=== PATIENT | male | born 1965 | race Caucasian/White ===

== ENCOUNTER → 2017-03-30 | Outpatient (CLI) | payer BC ==
[~2017-03-30] MED LIST: CELEXA10 MG PO; CIPRO 500MG TA500 MG PO; PRIL40 PO
[2017-03-30 18:10] LABS: BASO % 0.6 % (0.0-2.0); EOS # 0.2 (0.0-0.7); EOS % 2.5 % (0-4.0); GRAN # 4.2 (1.4-6.5); GRAN % 65.1 % (42.2-75.2); HEMATOCRIT 47.9 % (42.0-52.0); HEMOGLOBIN 15.8 g/dl (13.5-18.0); LYMPH # 1.3 (1.2-3.4); LYMPH % 20.7 % (20.0-51.0); MEAN CELL VOLUME 97 fl (80.0-100.0); MEAN CORPUSCULAR HEMOGLOBIN 32 pg (27.0-31.0); MEAN CORPUSCULAR HGB CONC 33 g/dl (33.0-37.0); MEAN PLATELET VOLUME 11.6 fl (7.4-10.4); MONO # 0.7 (0.1-0.6); MONO % 10.5 % (1.7-9.3); PLATELET COUNT 183 K/mm3 (130-400); RED BLOOD COUNT 4.92 M/mm3 (4.20-5.60); WHITE BLOOD COUNT 6.4 K/mm3 (4.8-10.8)
[2017-03-30 18:16] LABS: ADJUSTED CALCIUM 8.8 mg/dL (8.4-10.2); ALBUMIN 4.9 gm/dL (3.5-5.0); BILIRUBIN,TOTAL 0.8 mg/dL (0.0-1.0); CALCIUM 9.5 mg/dL (8.4-10.2); CREATININE, serum 1.01 mg/dL (0.66-1.25); POTASSIUM 4.4 mmol/L (3.4-5.0); TOTAL PROTEIN 8.4 gm/dL (6.4-8.2)
== END ==
LOC: COL.LAB 16:36
PROVIDERS: Family Medicine
DX: D69.6 Thrombocytopenia, unspecified (principal); R74.0 Nonspecific elevation of levels of transaminase and lactic acid dehydrogenase [LDH]; R74.8 Abnormal levels of other serum enzymes

== ENCOUNTER 2018-11-20 23:24 | Inpatient (IN) | payer SELFPAY ==
[~2018-11-20] VITALS: Ht 175.3 cm; Wt 98.7 kg
[2018-11-20] MEDS ORDERED: ROBITUSSIN DM 105 ML PO (23:41)
[2018-11-20] MEDS ORDERED: CLARITIN 1010 MG/TAB PO (23:42)
[2018-11-20 23:54] LABS: BASO # 0.1 (0.0-0.2); BASO % 1.2 % (0.0-2.0); EOS # 0.7 (0.0-0.7); EOS % 8.4 % (0-4.0); GRAN # 5.3 (1.4-6.5); GRAN % 62.8 % (42.2-75.2); HEMATOCRIT 51.8 % (42.0-52.0); HEMOGLOBIN 17.3 g/dl (13.5-18.0); LYMPH # 1.4 (1.2-3.4); MEAN CELL VOLUME 94 fl (80.0-100.0); MEAN CORPUSCULAR HEMOGLOBIN 31 pg (27.0-31.0); MEAN CORPUSCULAR HGB CONC 33 g/dl (33.0-37.0); MEAN PLATELET VOLUME 10.9 fl (7.4-10.4); MONO # 0.9 (0.1-0.6); MONO % 10.2 % (1.7-9.3); PLATELET COUNT 192 K/mm3 (130-400); RED BLOOD COUNT 5.53 M/mm3 (4.20-5.60); REDCELL DISTRIBUTION WIDTH-CV 14.3 % (11.5-14.5)
[2018-11-21] LABS: INR 0.9 (0.8-3.0); PROTHROMBIN TIME 10.9 SECONDS (9.7-12.8)
[2018-11-21 00:03] LABS: PARTIAL THROMBOPLASTIN TIME 32.5 SECONDS (26.0-37.0)
[2018-11-21 00:09] LABS: ALANINE AMINOTRANSFERASE 21 U/L (21-72); ALBUMIN 4.5 gm/dL (3.5-5.0); ALKALINE PHOSPHATASE 71 U/L (50-136); ANION GAP 14 mmol/L (7-16); AST,SGOT 37 U/L (15-37); BLOOD UREA NITROGEN 11 mg/dL (9-20); C-REACTIVE PROTEIN 1.4 mg/dL (0.0-0.9); CALCIUM 9.5 mg/dL (8.4-10.2); CARBON DIOXIDE 28 mmol/L (22-30); CHLORIDE 96 mmol/L (98-107); CREATININE, serum 0.95 (0.66-1.25); GLUCOSE 90 mg/dL (74-106); POTASSIUM 3.8 mmol/L (3.4-5.0); SODIUM 138 mmol/L (137-145); TOTAL PROTEIN 8.4 gm/dL (6.4-8.2)
[2018-11-21 00:26] LABS: TROPONIN-I < 0.012 ng/mL (0.000-0.035)
--- NOTE | 2018-11-21 02:45 | NUR ---
Pt arrived to room 315, transfered per wheelchair by executive housekeeper. Pt awake, a&o, cooperative c cares. Pt continued c/o SOB but reports "I feel way better than I did". Noted increased WOB, RR 28, RT aware of pt admit. Pt also c/o lateral rib/chest pain R>L, rated "8/10" et states "it's from coughing so hard". Pt denies other c/o. IV patent; IVF's et abx infusing. O2 per NC. Pt oriented to room, unit policies et current POC. Questions invited et answered, pt verbalizes understanding. Denies further needs. Will continue c admit process.
[2018-11-21 02:49] VITALS: BP 91/33; PULSE 114; TEMP 98.2
[2018-11-21 06:36] LABS: HEMATOCRIT 48.2 % (42.0-52.0); HEMOGLOBIN 15.5 g/dl (13.5-18.0); MEAN CELL VOLUME 95 fl (80.0-100.0); MEAN CORPUSCULAR HEMOGLOBIN 31 pg (27.0-31.0); MEAN CORPUSCULAR HGB CONC 32 g/dl (33.0-37.0); MEAN PLATELET VOLUME 11.1 fl (7.4-10.4); PLATELET COUNT 162 K/mm3 (130-400); RED BLOOD COUNT 5.09 M/mm3 (4.20-5.60); REDCELL DISTRIBUTION WIDTH-CV 14.5 % (11.5-14.5)
[2018-11-21 06:40] LABS: ANION GAP 19 mmol/L (7-16); BLOOD UREA NITROGEN 9 mg/dL (9-20); CALCIUM 8.7 mg/dL (8.4-10.2); CARBON DIOXIDE 20 mmol/L (22-30); CHLORIDE 99 mmol/L (98-107); CREATININE, serum 0.95 (0.66-1.25); GLUCOSE 157 mg/dL (74-106); SODIUM 139 mmol/L (137-145)
[2018-11-21 06:52] LABS: TROPONIN-I 6 HR POST INITIAL < 0.012 ng/mL (0.000-0.034)
[2018-11-21 07:47] LABS: BAND 1 % (0-10); LYMPHOCYTE 5 % (20.0-51.0); NEUTROPHILS 92 % (42.0-75.2); PLATELET ESTIMATE NORMAL (NORMAL)
--- NOTE | 2018-11-21 08:30 | NUR ---
Assessment complete. Pt sitting up in bed, A&O x 4. Notable dyspnea at rest with O2 at 3 L/min via NC. IVF's infusing per orders through right forearm site without s/s of complications. Fluids disconnected at this time for pt to transfer to radiology for testing. Pt reports pain to left side 6 out of 10 that worsens with coughing. PRN pain medication administered per orders. Pt to at this time.
[2018-11-21 08:45] VITALS: BP 153/92; PULSE 116; TEMP 98.2
[2018-11-21 10:03] LABS: ARTERIAL BLD GAS O2 SATURATION 96.3 % (92-100); ARTERIAL BLD GAS TCO2 CT 20.2; ARTERIAL BLOOD GAS BASE EXCESS -4.3 (-2-2); ARTERIAL BLOOD GAS HCO3 19.3 meq/L (22-26); ARTERIAL BLOOD GAS PCO2 31.8 mmHg (35-45); ARTERIAL BLOOD GAS PO2 86.8 mmHg (80-100)
[2018-11-21 10:34] VITALS: BP 141/73
--- NOTE | 2018-11-21 12:52 | NUR ---
RACQUEL met with the pt and his ex- Delia to discuss a discharge plan. The pt is being tranfered to [facility] today, 11/21. The pt lives in [place] with Delia and their children. The pt does not use DME and reports independence with ADLs. The pt does not have a PCP and receives medications from [facility]. The pt is not currently insured. SW to contact Sophia in finance to discuss pt options. The pt does not have advanced directives in the EMR but was interested in completing a DPOA-HC form. RACQUEL and pt's nurse witnessed the DPOA-HC form completion; it designates Delia. The original was given to the pt and a copy was placed in the pt's chart. There are no additional needs at this time.
--- NOTE | 2018-11-21 12:55 | NUR ---
Pt discharged for transfer to [facility] via EMS. IVF's still infusing with Potassium running concurrently, third bag of Potassium provided to EMS for transport. PRN pain medication administered just before transfer per pt's request, reporting mid back pain 6 out of 10.
--- NOTE | 2018-11-21 13:17 | NUR ---
Report called to ASHISH Hay at [facility].
== END 2018-11-21 13:00 | disposition short-term general hospital (02) | DRG 199 ==
LOC: COL.ER 23:24 → MEDICAL 11-21 01:36
PROVIDERS: Emergency Medicine; Internal Medicine Critical Care Medicine; Nurse Practitioner; ADMIT Student in an Organized Health Care Education/Training Program
DX: J98.2 Interstitial emphysema (principal); J18.9 Pneumonia, unspecified organism; E87.2 Acidosis; K27.9 Peptic ulcer, site unspecified, unspecified as acute or chronic, without hemorrhage or perforation; F41.9 Anxiety disorder, unspecified; F10.20 Alcohol dependence, uncomplicated; F17.210 Nicotine dependence, cigarettes, uncomplicated; R00.0 Tachycardia, unspecified; E87.6 Hypokalemia; I10 Essential (primary) hypertension; R06.03 Acute respiratory distress; R09.02 Hypoxemia
CPT/HCPCS: 99223-AI; A4216; J0456; J0696; J2930; J3480; J7030; J7050; J7512; Q9967

== ENCOUNTER 2018-12-26 18:00 | Emergency (ER) | payer SELFPAY ==
[~2018-12-26] VITALS: Ht 175.3 cm; Wt 99.1 kg
[~2018-12-26 18:00] MED LIST changes: +CLARITIN 1010 MG/TAB PO; +ROBITUSSIN DM 105 ML PO
[2018-12-26 19:30] LABS: BASO # 0.1 (0.0-0.2); BASO % 0.8 % (0.0-2.0); EOS # 0.5 (0.0-0.7); GRAN # 4.5 (1.4-6.5); GRAN % 62.2 % (42.2-75.2); HEMATOCRIT 47.6 % (42.0-52.0); LYMPH # 1.5 (1.2-3.4); LYMPH % 20.4 % (20.0-51.0); MEAN CELL VOLUME 93 fl (80.0-100.0); MEAN CORPUSCULAR HEMOGLOBIN 31 pg (27.0-31.0); MEAN CORPUSCULAR HGB CONC 34 g/dl (33.0-37.0); MEAN PLATELET VOLUME 10.5 fl (7.4-10.4); MONO # 0.7 (0.1-0.6); PLATELET COUNT 230 K/mm3 (130-400); RED BLOOD COUNT 5.13 M/mm3 (4.20-5.60); REDCELL DISTRIBUTION WIDTH-CV 13.3 % (11.5-14.5)
[2018-12-26 19:45] LABS: ALANINE AMINOTRANSFERASE 13 U/L (21-72); ALBUMIN 4.3 gm/dL (3.5-5.0); ALKALINE PHOSPHATASE 71 U/L (50-136); ANION GAP 9 mmol/L (7-16); AST,SGOT 26 U/L (15-37); BILIRUBIN,TOTAL 0.9 mg/dL (0.0-1.0); BLOOD UREA NITROGEN 13 mg/dL (9-20); CALCIUM 10.4 mg/dL (8.4-10.2); CARBON DIOXIDE 28 mmol/L (22-30); CHLORIDE 103 mmol/L (98-107); CREATININE, serum 0.94 (0.66-1.25); GLUCOSE 88 mg/dL (74-106); LIPASE 210 U/L (23-300); POTASSIUM 3.3 mmol/L (3.4-5.0); SODIUM 141 mmol/L (137-145); TOTAL PROTEIN 7.5 gm/dL (6.4-8.2)
[2018-12-26 19:46] LABS: C-REACTIVE PROTEIN < 0.5 mg/dL (0.0-0.9)
[2018-12-26 20:31] LABS: COLLECTION METHOD CLEAN CATCH
[2018-12-26 20:41] LABS: MUCOUS Present /lpf; PH 7 (5-8); SQUAMOUS EPITHELIAL None Seen /hpf; URINE APPEARANCE Cloudy; URINE BACTERIA Rare /hpf; URINE BILIRUBIN Negative (NEGATIVE); URINE BLOOD Negative (NEGATIVE); URINE COLOR Yellow; URINE GLUCOSE Negative (NEGATIVE); URINE KETONE 1+ (NEGATIVE); URINE LEUKOCYTE ESTERASE Negative (NEGATIVE); URINE NITRATE Negative (NEGATIVE); URINE PROTEIN(semi-quant) Negative (NEGATIVE); URINE RBC None Seen /hpf; URINE UROBILINOGEN Negative (NEGATIVE)
[2018-12-26] MEDS ORDERED: BACTRIM DS 8001 TAB PO (20:58)
[2018-12-26 21:13] VITALS: BP 155/80; PULSE 86; TEMP 98.2
== END 2018-12-26 21:18 | disposition home or self-care (01) ==
LOC: COL.ER 18:00
PROVIDERS: Family Medicine
DX: N30.90 Cystitis, unspecified without hematuria (principal)
CPT/HCPCS: A4216; J0696; J1885; J2270; J2405; J7030; Q9967

== ENCOUNTER 2020-08-22 05:53 | Inpatient (IN) | payer BC ==
[~2020-08-22] VITALS: Ht 175.3 cm; Wt 93.7 kg
[2020-08-22] VITALS (545 sets, daily range): BP systolic 120–146; BP diastolic 68–82; PULSE 86–92; TEMP 98–98.1; O2SAT 87–100
[~2020-08-22 05:53] MED LIST changes: +BACTRIM DS 8001 TAB PO
[2020-08-22 06:05] LABS: COLLECTION METHOD CLEAN CATCH
[2020-08-22 06:08] LABS: BASO # 0.1 (0.0-0.2); BASO % 1.1 % (0.0-2.0); EOS # 0.1 (0.0-0.7); EOS % 0.9 % (0-4.0); GRAN # 3.7 (1.4-6.5); GRAN % 67.8 % (42.2-75.2); HEMATOCRIT 41.5 % (42.0-52.0); HEMOGLOBIN 14.2 g/dl (13.5-18.0); LYMPH # 0.8 (1.2-3.4); LYMPH % 14.7 % (20.0-51.0); MEAN CELL VOLUME 100 fl (80.0-100.0); MEAN CORPUSCULAR HEMOGLOBIN 34 pg (27.0-31.0); MEAN CORPUSCULAR HGB CONC 34 g/dl (33.0-37.0); MEAN PLATELET VOLUME 10.5 fl (7.4-10.4); MONO # 0.8 (0.1-0.6); PLATELET COUNT 174 K/mm3 (130-400); RED BLOOD COUNT 4.17 M/mm3 (4.20-5.60); REDCELL DISTRIBUTION WIDTH-CV 13.4 % (11.5-14.5)
[2020-08-22 06:13] LABS: MUCOUS Present /lpf; PH 5 (5-8); SQUAMOUS EPITHELIAL None Seen /hpf; URINE APPEARANCE Hazy; URINE BACTERIA None Seen /hpf; URINE BILIRUBIN Negative (NEGATIVE); URINE BLOOD Negative (NEGATIVE); URINE COLOR Amber; URINE GLUCOSE Negative (NEGATIVE); URINE KETONE 1+ (NEGATIVE); URINE LEUKOCYTE ESTERASE Negative (NEGATIVE); URINE NITRATE Negative (NEGATIVE); URINE PROTEIN(semi-quant) 2+ (NEGATIVE)
[2020-08-22 06:18] LABS: ACETAMINOPHEN 17 ug/mL (10-30); ALANINE AMINOTRANSFERASE 55 U/L (4-49); ALBUMIN 4.8 gm/dL (3.5-5.0); ALCOHOL(ethanol),MEDICAL 248 mg/dL; ALKALINE PHOSPHATASE 67 U/L (50-136); ANION GAP 19 mmol/L (7-16); AST,SGOT 103 U/L (15-37); BILIRUBIN,TOTAL 1.9 mg/dL (0.0-1.0); BLOOD UREA NITROGEN 34 mg/dL (9-20); CALCIUM 9.2 mg/dL (8.4-10.2); CARBON DIOXIDE 21 mmol/L (22-30); CHLORIDE 94 mmol/L (98-107); CREATININE, serum 1.32 (0.66-1.25); GLUCOSE 83 mg/dL (74-106); POTASSIUM 3.7 mmol/L (3.4-5.0); SODIUM 134 mmol/L (137-145); TOTAL PROTEIN 8.6 gm/dL (6.4-8.2)
[2020-08-22 06:21] LABS: SALICYLATE < 1.0 mg/dL
[2020-08-22 06:25] LABS: TRICYCLIC ANTIDEPRESS URINE NEGATIVE
--- NOTE | 2020-08-22 12:26 | NUR ---
PATIENT HAS ARRIVED TO ICU. HE IS VERY SLEEPY AND FALLS ASLEEP WITH NO STIMULATION. ED RN ISAMAR REPORTS THAT SHE JUST GAVE HIM 2 MG IV ATIVAN FOR INCREASED TREMORS AND DIAPHORESIS. VS [facility]. DR. MCINTOSH NOTIFIED OF PATIENT'S ARRIVAL.
--- NOTE | 2020-08-22 17:30 | NUR ---
Patient more awake and alert now. He is requesting food and water. Call placed to Dr. Guallpa for diet order. Patient using call light and urinal appropriately. He is encouraged to call for help if he needs it. Bed Alarm activated for his safety, since he has been so drowsy and tremulous.
--- NOTE | 2020-08-22 20:00 | NUR ---
Assessment complete. Pt is AXO X3, denies having any pain at this time. Pt is sitting up in the bed watching TV at this time and he denies further needs. Call light within reach.
[2020-08-23] VITALS (1381 sets, daily range): BP systolic 117–155; BP diastolic 87–121; PULSE 65–88; TEMP 97.7–98.1; O2SAT 85–100
[2020-08-23 05:23] LABS: BASO % 0.7 % (0.0-2.0); EOS # 0.1 (0.0-0.7); EOS % 3.3 % (0-4.0); GRAN % 66.9 % (42.2-75.2); HEMATOCRIT 37.1 % (42.0-52.0); HEMOGLOBIN 12.3 g/dl (13.5-18.0); LYMPH # 0.4 (1.2-3.4); LYMPH % 14.4 % (20.0-51.0); MEAN CELL VOLUME 103 fl (80.0-100.0); MEAN CORPUSCULAR HEMOGLOBIN 34 pg (27.0-31.0); MEAN CORPUSCULAR HGB CONC 33 g/dl (33.0-37.0); MONO # 0.4 (0.1-0.6); MONO % 14.4 % (1.7-9.3); PLATELET COUNT 114 K/mm3 (130-400); REDCELL DISTRIBUTION WIDTH-CV 13.5 % (11.5-14.5)
[2020-08-23 05:34] LABS: CALCIUM 8.5 mg/dL (8.4-10.2); CREATININE, serum 0.66 (0.66-1.25); POTASSIUM 3.5 mmol/L (3.4-5.0)
--- NOTE | 2020-08-23 07:04 | NUR ---
Bedside shift report given to ASHISH Melgar.
--- NOTE | 2020-08-23 12:45 | NUR ---
SW met with patient to complete intake. Patient provides that he lives in [place], [place] alone. Patient provides that his point of contact is his ex Geovanni [phone]. Patient provides that she also has been appointed as his DPOA and has the documentation. Patient provides that he will contact her in order to bring a copy of the documenation to the facility. Patient states that he does not utilize any DME and is independent with ADL's, PCP is Dr. Pinto and and pharmacy is [facility]. Patient provides that his plan is to go back to his home when
--- NOTE | 2020-08-23 21:00 | NUR ---
Assessment complete. Pt is AXO X3, states he has pain in his LLQ rated a 4/10. Pt is sitting up in the bed watching TV at this time and he denies further needs. Call light within reach.
[2020-08-24] VITALS (377 sets, daily range): BP systolic 116–153; BP diastolic 80–114; PULSE 54–96; TEMP 97.6–98.5; O2SAT 75–100
[2020-08-24 05:11] LABS: BASO % 0.9 % (0.0-2.0); EOS # 0.2 (0.0-0.7); EOS % 5.1 % (0-4.0); GRAN # 2.1 (1.4-6.5); GRAN % 58.7 % (42.2-75.2); HEMATOCRIT 38.9 % (42.0-52.0); HEMOGLOBIN 12.7 g/dl (13.5-18.0); LYMPH # 0.9 (1.2-3.4); LYMPH % 25.3 % (20.0-51.0); MEAN CELL VOLUME 105 fl (80.0-100.0); MEAN CORPUSCULAR HEMOGLOBIN 34 pg (27.0-31.0); MEAN CORPUSCULAR HGB CONC 33 g/dl (33.0-37.0); MEAN PLATELET VOLUME 10.4 fl (7.4-10.4); MONO # 0.3 (0.1-0.6); MONO % 9.7 % (1.7-9.3); PLATELET COUNT 118 K/mm3 (130-400); RED BLOOD COUNT 3.72 M/mm3 (4.20-5.60); REDCELL DISTRIBUTION WIDTH-CV 13.3 % (11.5-14.5)
[2020-08-24 05:23] LABS: CALCIUM 8.8 mg/dL (8.4-10.2); CREATININE, serum 0.6 (0.66-1.25); POTASSIUM 3.6 mmol/L (3.4-5.0)
--- NOTE | 2020-08-24 07:14 | NUR ---
Bedside shift report given to ASHISH Melgar.
--- NOTE | 2020-08-24 12:37 | NUR ---
First visit from the marketing operations assistant. Voltage Regulator Assembler prayed with patient, no other needs right now.
--- NOTE | 2020-08-24 12:55 | NUR ---
Pt anxious, wishing to leave AMA because "Im paranoid. Im terrified of hospitals. I know if I just had a beer I would be better. Can you please unhook me so I can leave". Plan of care discussed in length with pt, recall limited d/t anxiety but pt agreeable to staying and getting treatment. MD Ramu notified
--- NOTE | 2020-08-24 13:09 | NUR ---
Adjunct Phlebotomy Instructor was contacted by patient's RN as patient is wanting to leave [facility]. RACQUEL entered patient's room as Ramón HINOJOSA was on the phone with patient's former boss, Ajay. Per Ajay Melgar advised he would lock up patient's apartment for him. Patient states he needed to get up with someone at [facility] for outpatient treatment services. SW inquired what patient meant by outpatient services and he advised he meant both mental health as well as drug and alcohol services as patient reports he drinks from the time he wakes up until he passes out. Patient stresses he needs outpatient services because he needs to maintain his apartment and job. When SW asked patient where he works, patient states he was recently let go from his job. Patient advised he feels that someone is out to get him, meaning people outside of the hospital are trying to set him up for something. Patient states he currently is on his ex-'s [employer] policy, however likely will be kicked off that. Patient states more than once that he is broke and has no insurance. RACQUEL spoke with patient about [facility] outpatient services. At this time, it appears patient will be agreeable to staying as he agreed to let Ramón HINOJOSA administer medication. RACQUEL provided [facility] Resource Guide to patient which included drug and alcohol resources. RACQUEL then contacted [facility] and left a message for their admissions department. RACQUEL will continue to follow.
--- NOTE | 2020-08-24 14:40 | NUR ---
MD Ramu on unit - pt attempting to get out of bed to leave AMA. Pt reoriented but pt wishing to "leave here so I can get treatment at [facility] or something like that". MD Ramu and myself educated pt that he will be unable to be evaluated in this condition - [place] requires clients to be medically cleared before being evaluated. Pt is not understanding and attempting to get out of bed again - PRN Haldol given.
--- NOTE | 2020-08-24 19:30 | NUR ---
Received report from ASHISH Melgar. All medications verified and all questions answered. Patient resting in bed watching TV at this time. No concerns or complaints noted. VSS. Will resume care at this time.
[2020-08-25] VITALS (590 sets, daily range): BP systolic 97–145; BP diastolic 71–95; PULSE 56–65; TEMP 97.9–98.2; O2SAT 85–100
[2020-08-25 05:19] LABS: BASO % 0.8 % (0.0-2.0); EOS # 0.3 (0.0-0.7); EOS % 6.3 % (0-4.0); GRAN # 2.6 (1.4-6.5); GRAN % 64.3 % (42.2-75.2); HEMATOCRIT 41.5 % (42.0-52.0); HEMOGLOBIN 13.8 g/dl (13.5-18.0); LYMPH # 0.8 (1.2-3.4); LYMPH % 19.5 % (20.0-51.0); MEAN CELL VOLUME 104 fl (80.0-100.0); MEAN CORPUSCULAR HEMOGLOBIN 35 pg (27.0-31.0); MEAN CORPUSCULAR HGB CONC 33 g/dl (33.0-37.0); MEAN PLATELET VOLUME 11.1 fl (7.4-10.4); MONO # 0.4 (0.1-0.6); MONO % 8.8 % (1.7-9.3); PLATELET COUNT 142 K/mm3 (130-400)
[2020-08-25 05:32] LABS: CALCIUM 9.4 mg/dL (8.4-10.2); CREATININE, serum 0.63 (0.66-1.25); POTASSIUM 3.8 mmol/L (3.4-5.0)
--- NOTE | 2020-08-25 07:00 | NUR ---
PT RESTING IN BED. VSS. PRECEDEX RUNNING. BEDALARM ACTIVE. WILL CONITUE TO [facility].
--- NOTE | 2020-08-25 10:13 | NUR ---
DISCUSSED WITH , , AND TIMUR GIBBONS REGARDING UNDERLYINS PSYCH CONDITION AND POSSIBLE WORSENING OF SYMPOTOMS WHILE DETOXING. NO NEW ORDERS RECEIVED.
--- NOTE | 2020-08-25 11:47 | NUR ---
Pt awake, sitting up, and eating breakfast. Pt wants to know why he cant go home. I explained to Pt he is till receiving IVF, electrolyte replace, and medications to help with detox. Pt wants to speak to the provider. Marcelle GIBBONS called and notified. States she or will come speak to Pt.
--- NOTE | 2020-08-25 12:51 | NUR ---
[facility] PICC RN unable to get ahold of Pt's for consent. This RN attempted later to call for consent with no answer. Called Marcelle GIBBONS for possible medical necessity consent, but does not belive justified at this time. Will attempt again later to get ahole of Pt's for consent.
--- NOTE | 2020-08-25 13:50 | NUR ---
Attempted to place second IV. Pt became very agitated and refusing an IV. Pt states "I came here to detox and not get poked and proded. I want to leave". Educated Pt on safely detoxing and why the need for second Iv. Pt still insisting to leave. Marcelle Olivarez called and notfied. came and visited with Pt at length. Pt has agreed to stay. states ok to hold banana bag at this time, since Pt took PO meds this am.
--- NOTE | 2020-08-25 14:01 | NUR ---
Order for PICC placement. left a voice mail message on 's phone this am with no response. Patient is unable to give consent. Primary care nurse contacted physician and unable to sign for medical necessity at this time.
--- NOTE | 2020-08-25 20:00 | NUR ---
Assessment complete and charted. Patient drowsy but easily wake with voice. Denies needs. Denies pain. Call light in reach.
--- NOTE | 2020-08-25 23:45 | NUR ---
Resting in bed. Denies needs. Call light in reach.
[2020-08-26] VITALS (652 sets, daily range): BP systolic 86–122; BP diastolic 69–85; PULSE 63–134; TEMP 97.6–98.2; O2SAT 86–100
--- NOTE | 2020-08-26 03:58 | NUR ---
Patient resting in bed. Denies needs. Call light in reach.
--- NOTE | 2020-08-26 05:56 | NUR ---
Patient remains on precedex gtt throughout night. Otherwise uneventful night. Resting in bed this AM with lab in room for blood draw. Call light in reach.
[2020-08-26 06:11] LABS: BASO # 0.1 (0.0-0.2); BASO % 0.8 % (0.0-2.0); EOS # 0.4 (0.0-0.7); EOS % 6.3 % (0-4.0); GRAN # 4.2 (1.4-6.5); GRAN % 66.2 % (42.2-75.2); HEMATOCRIT 43.6 % (42.0-52.0); HEMOGLOBIN 14.4 g/dl (13.5-18.0); LYMPH # 1.1 (1.2-3.4); MEAN CELL VOLUME 104 fl (80.0-100.0); MEAN CORPUSCULAR HEMOGLOBIN 34 pg (27.0-31.0); MEAN CORPUSCULAR HGB CONC 33 g/dl (33.0-37.0); MEAN PLATELET VOLUME 10.9 fl (7.4-10.4); MONO # 0.6 (0.1-0.6); MONO % 9.2 % (1.7-9.3); PLATELET COUNT 144 K/mm3 (130-400); REDCELL DISTRIBUTION WIDTH-CV 13.1 % (11.5-14.5)
[2020-08-26 06:26] LABS: ALBUMIN 3.9 gm/dL (3.5-5.0); BILIRUBIN,TOTAL 0.5 mg/dL (0.0-1.0); CALCIUM 9.6 mg/dL (8.4-10.2); CREATININE, serum 0.67 (0.66-1.25); MAGNESIUM 2.3 mg/dL (1.6-2.3); POTASSIUM 4.1 mmol/L (3.4-5.0); TOTAL PROTEIN 7.1 gm/dL (6.4-8.2)
--- NOTE | 2020-08-26 07:16 | NUR ---
Report given to ASHISH Guerra
[2020-08-26 15:12] LABS: BASO # 0.1 (0.0-0.2); BASO % 0.9 % (0.0-2.0); EOS # 0.4 (0.0-0.7); GRAN % 62.4 % (42.2-75.2); HEMATOCRIT 45.9 % (42.0-52.0); HEMOGLOBIN 15.1 g/dl (13.5-18.0); LYMPH # 1.7 (1.2-3.4); LYMPH % 21.5 % (20.0-51.0); MEAN CELL VOLUME 104 fl (80.0-100.0); MEAN CORPUSCULAR HEMOGLOBIN 34 pg (27.0-31.0); MEAN CORPUSCULAR HGB CONC 33 g/dl (33.0-37.0); MONO # 0.8 (0.1-0.6); MONO % 9.8 % (1.7-9.3); PLATELET COUNT 176 K/mm3 (130-400); RED BLOOD COUNT 4.42 M/mm3 (4.20-5.60)
[2020-08-26 15:19] LABS: ALANINE AMINOTRANSFERASE 86 U/L (4-49); ALBUMIN 4.1 gm/dL (3.5-5.0); ALKALINE PHOSPHATASE 55 U/L (50-136); ANION GAP 7 mmol/L (7-16); AST,SGOT 89 U/L (15-37); BILIRUBIN,TOTAL 0.4 mg/dL (0.0-1.0); BLOOD UREA NITROGEN 17 mg/dL (9-20); CALCIUM 10.4 mg/dL (8.4-10.2); CARBON DIOXIDE 31 mmol/L (22-30); CHLORIDE 98 mmol/L (98-107); CREATININE, serum 0.81 (0.66-1.25); GLUCOSE 91 mg/dL (74-106); MAGNESIUM 2.1 mg/dL (1.6-2.3); POTASSIUM 5.2 mmol/L (3.4-5.0); SODIUM 135 mmol/L (137-145); TOTAL PROTEIN 7.5 gm/dL (6.4-8.2)
--- NOTE | 2020-08-26 15:23 | NUR ---
SEE MERGE FOR ALL MEDICATION ADMINISTRATION TIMES, INTRA AND POST SEDATION ASSESSMENTS
[2020-08-26 15:31] LABS: TROPONIN-I < 0.012 ng/mL (0.000-0.035)
--- NOTE | 2020-08-26 19:40 | NUR ---
PATIENT HAD ORD[facility] AFTER BEING OFF PRECEDEX FOR AN HOUR WITH A CIWA SCORE OF 0 ALL MORNING. PRIOR TO TRANSFER AROUND 1440 PATIENT DEVELOPED SOB AND CHEST PAIN RATED AT [address] KAPLAN WAS CALLED AND QUICKLY CAME TO BEDSIDE. EKG WAS OBTAINED CARDIOLOGY CONSULTED. PT TAKEN TO TELEPHONE STATION REPAIRER. NO INTERVENTIONS COMPLETED. POST PROCEDURE PT TAKEN TO CT WHERE SADDLE PE WAS FOUND. LOVENOX STARTED PER DR. QUINTANILLA. PT NOTIFIED OF CHANGE IN CARE. PT HAS RESTED WELL IN BED SINCE, ATE ALL OF DINNER. NIGHT HOSPITALIST CALLED FOR HR SUSTAINED POST CATH PROCEDURE IN 130S. SEE ORDERS FOR TREATMENT PLAN. REPORT GIVEN TO VIKTORIYA JOSEPH RELINQUISED AT THIS TIME.
--- NOTE | 2020-08-26 20:00 | NUR ---
Assessment complete and charted. Patient given bed bath after flat time was ended at 2029. Patient tolerated well with some shortness of breath while changing sheets. Patient denies other needs at this time. Fluid bolus currently infusing for hypotension and tachycardia. Call light in reach.
--- NOTE | 2020-08-26 21:50 | NUR ---
Patient reporting headache. Patient has PRN tramadol. Verifed with Martha CANDELARIO. Okay to give to patient. Denies other needs at this time. Call light in reach.
[2020-08-27] VITALS (702 sets, daily range): BP systolic 87–110; BP diastolic 66–86; PULSE 86–114; TEMP 98–98.2; O2SAT 82–100
--- NOTE | 2020-08-27 05:01 | NUR ---
Resting in bed. Right femoral site CDI. Denies needs. Call light in reach.
[2020-08-27 05:51] LABS: BASO # 0.1 (0.0-0.2); BASO % 0.8 % (0.0-2.0); EOS # 0.3 (0.0-0.7); EOS % 4.5 % (0-4.0); GRAN # 4.1 (1.4-6.5); GRAN % 61.5 % (42.2-75.2); HEMATOCRIT 42.5 % (42.0-52.0); HEMOGLOBIN 13.8 g/dl (13.5-18.0); LYMPH # 1.5 (1.2-3.4); LYMPH % 22.6 % (20.0-51.0); MEAN CELL VOLUME 104 fl (80.0-100.0); MEAN CORPUSCULAR HEMOGLOBIN 34 pg (27.0-31.0); MEAN CORPUSCULAR HGB CONC 33 g/dl (33.0-37.0); MONO # 0.7 (0.1-0.6); MONO % 10.1 % (1.7-9.3); PLATELET COUNT 155 K/mm3 (130-400); RED BLOOD COUNT 4.08 M/mm3 (4.20-5.60); REDCELL DISTRIBUTION WIDTH-CV 13.4 % (11.5-14.5)
[2020-08-27 06:04] LABS: ALBUMIN 3.6 gm/dL (3.5-5.0); BILIRUBIN,TOTAL 0.4 mg/dL (0.0-1.0); CREATININE, serum 0.73 (0.66-1.25); MAGNESIUM 2.1 mg/dL (1.6-2.3); PHOSPHOROUS 4.3 mg/dL (2.5-4.5); POTASSIUM 3.8 mmol/L (3.4-5.0); TOTAL PROTEIN 6.7 gm/dL (6.4-8.2)
--- NOTE | 2020-08-27 06:58 | NUR ---
Patient resting in bed. Denies needs. Call light in reach. Uneventful night.
--- NOTE | 2020-08-27 07:18 | NUR ---
Report given to ASHISH Nova
--- NOTE | 2020-08-27 16:04 | NUR ---
Process Steward followed up with patient as he requested to speak with RACQUEL. Patient is interested in applying for social security disability. Patient is also still agreeable to get set up with outpatient drug and alcohol services through [facility]. RACQUEL consulted with Sophia Financial Counselor who advised patient will need to call the Social Security office at ph#[phone] or apply online. RACQUEL also contacted Yennifer at [facility] admissions and gave referral. Yennifer advised she would contact patient to work on establishing services.
--- NOTE | 2020-08-27 19:02 | NUR ---
Report given to ASHISH Oconnor. Care relinquished at this time.
--- NOTE | 2020-08-27 19:47 | NUR ---
Assessment complete and charted. Denies needs at this time. Call light in reach.
[2020-08-28] VITALS (211 sets, daily range): BP systolic 99–130; BP diastolic 47–76; PULSE 54–88; TEMP 97.6–98.6; O2SAT 86–100
--- NOTE | 2020-08-28 | NUR ---
Assessment complete and charted. Denies needs. Call light in reach.
--- NOTE | 2020-08-28 05:33 | NUR ---
Assessment complete and charted. Denies needs. Call light in reach.
--- NOTE | 2020-08-28 05:42 | NUR ---
Patient had uneventful night. Resting in bed this AM. Call light in reach.
[2020-08-28 06:17] LABS: BASO # 0.1 (0.0-0.2); BASO % 0.9 % (0.0-2.0); EOS # 0.3 (0.0-0.7); EOS % 5.6 % (0-4.0); GRAN % 55.6 % (42.2-75.2); HEMATOCRIT 38.7 % (42.0-52.0); HEMOGLOBIN 12.7 g/dl (13.5-18.0); LYMPH # 1.3 (1.2-3.4); LYMPH % 24.3 % (20.0-51.0); MEAN CELL VOLUME 106 fl (80.0-100.0); MEAN CORPUSCULAR HEMOGLOBIN 35 pg (27.0-31.0); MEAN CORPUSCULAR HGB CONC 33 g/dl (33.0-37.0); MEAN PLATELET VOLUME 11.1 fl (7.4-10.4); MONO # 0.7 (0.1-0.6); PLATELET COUNT 152 K/mm3 (130-400); RED BLOOD COUNT 3.66 M/mm3 (4.20-5.60); REDCELL DISTRIBUTION WIDTH-CV 13.3 % (11.5-14.5)
[2020-08-28 06:26] LABS: ALBUMIN 3.2 gm/dL (3.5-5.0); BILIRUBIN,TOTAL 0.3 mg/dL (0.0-1.0); CALCIUM 8.2 mg/dL (8.4-10.2); CREATININE, serum 0.65 (0.66-1.25); MAGNESIUM 2.3 mg/dL (1.6-2.3); PHOSPHOROUS 3.4 mg/dL (2.5-4.5); POTASSIUM 4.1 mmol/L (3.4-5.0); TOTAL PROTEIN 6.1 gm/dL (6.4-8.2)
--- NOTE | 2020-08-28 07:11 | NUR ---
Report given to ASHISH Billingsley
--- NOTE | 2020-08-28 08:00 | NUR ---
Report recieved from overnight RN, all questions answered. Patient found awake alert and oriented in bed, pleasant. Denies chest pain or SOB. Oxygen via NC in place SpO2 WNL. Bandages to right groin and right radial CDI. Indwelling beltran in place draining clear yellow urine. MD at bedside, requests patient beltran to be pulled, and to get up to recliner. Beltran pulled, tolerated without difficulty. Patient transfered to recliner no difficulties. Blood pressure remains on the lower end at this time. Fluids infusing at 125ml/hr via right forearm. Call foley within reach, will monitor.
--- NOTE | 2020-08-28 10:35 | NUR ---
Correction Warden spoke with Hospitalist who advised patient may transfer to a different hospital, but if he doesn't, he will move upstairs to the medical floor.
--- NOTE | 2020-08-28 11:15 | NUR ---
Report called to RN on medical floor. Patient to be transfered via wheel chair to room 307. All questions answered. Vital signs 109/82 p-76 96% on 2L via NC, Respirations 18. Will transport.
--- NOTE | 2020-08-28 11:25 | NUR ---
Patient transported to room 307 via wheel chair. RN at bedside to get patient settled. Medical floor to continue care at this time.
[2020-08-28] MEDS ORDERED: TYLENOL 500MG500 MG PO (12:04)
[2020-08-28] MEDS ORDERED: ALEVE 220MG220 MG PO (12:05)
[2020-08-28] MEDS ORDERED: IBU400 MG PO (12:06)
[2020-08-28] MEDS ORDERED: PRIL40 PO (12:06)
[2020-08-28] MEDS ORDERED: CLARITIN 1010 MG/TAB PO (12:07)
[2020-08-28] MEDS ORDERED: ONE-A-DAY ESSE1 EACH PO (12:08)
[2020-08-28] MEDS ORDERED: S IH (12:10)
--- NOTE | 2020-08-28 12:13 | NUR ---
Pt arrived to medical unit room 307 at 1130 from ICU via WC. Oriented to room. Med rec updated. A&Ox4. Heart RRR. Lungs CTA. Denies pain or other concerns at this time. IV to right forearm w/bloody drainage, site redressed and flushes well. IVF started per orders. Call light in reach.
--- NOTE | 2020-08-28 21:24 | NUR ---
Patient sitting up in the chair upon enter the room. Shift assessment completed. Patient A/O x4. Patient denies SOB or dyspnea while at rest. Patient currently on oxygen 2L via NC. Breathing even and unlabored. Patient reports some mild pain 2-3 out of 10 to his right femoral cardiac cath site. Dressing C/D/I to right femoral cardiac cath site. All scheduled meds given per JUN. NS running at 75ml/hr via right AC. Right AC IV site has no s/s of complications. Call light within reach. Patient denies any needs at this time.
[2020-08-29] VITALS (8 sets, daily range): BP systolic 105–114; BP diastolic 62–77; PULSE 66–83; TEMP 97.8–98.8
--- NOTE | 2020-08-29 05:50 | NUR ---
Alcohol detox score remains 0 over the night. Patient remains on O2 2L via NC. VS stable. No acute distress noted. Right AC IV removed due to c/o pain/discomfort to IV site. Inserted 22G IV to left forearm. Patient tolerated well. Call light within reach.
[2020-08-29 07:50] LABS: BASO # 0.1 (0.0-0.2); BASO % 1.3 % (0.0-2.0); EOS # 0.2 (0.0-0.7); EOS % 4.4 % (0-4.0); GRAN # 3.1 (1.4-6.5); GRAN % 56.6 % (42.2-75.2); HEMATOCRIT 37.9 % (42.0-52.0); HEMOGLOBIN 12.3 g/dl (13.5-18.0); LYMPH # 1.1 (1.2-3.4); LYMPH % 20.7 % (20.0-51.0); MEAN CELL VOLUME 107 fl (80.0-100.0); MEAN CORPUSCULAR HEMOGLOBIN 35 pg (27.0-31.0); MEAN CORPUSCULAR HGB CONC 33 g/dl (33.0-37.0); MEAN PLATELET VOLUME 11.1 fl (7.4-10.4); MONO # 0.9 (0.1-0.6); MONO % 16.1 % (1.7-9.3); PLATELET COUNT 174 K/mm3 (130-400); RED BLOOD COUNT 3.56 M/mm3 (4.20-5.60); REDCELL DISTRIBUTION WIDTH-CV 13.1 % (11.5-14.5)
[2020-08-29 08:01] LABS: ALBUMIN 3.4 gm/dL (3.5-5.0); BILIRUBIN,TOTAL 0.2 mg/dL (0.0-1.0); CALCIUM 8.6 mg/dL (8.4-10.2); CREATININE, serum 0.69 (0.66-1.25); MAGNESIUM 2.2 mg/dL (1.6-2.3); PHOSPHOROUS 3.8 mg/dL (2.5-4.5); TOTAL PROTEIN 6.4 gm/dL (6.4-8.2)
--- NOTE | 2020-08-29 09:17 | NUR ---
Shift assessment complete. Pt sitting on edge of bed. Unhooked fluids and wrapped IV for shower. Reports mild SOA, sats 98-100% on 1 lpm NC. Lungs CTA. Heart RRR. A&Ox4. Reports improvement in pain from tramadol. Continuing to monitor.
--- NOTE | 2020-08-29 15:43 | NUR ---
Report given to Shanae HINOJOSA who will resume care at this time.
--- NOTE | 2020-08-29 18:01 | NUR ---
Patient walked the hallway independently without oxygen and tolerated well. Patient is to undergo a exercise oxyimetry tomorrow and walked to walk the ramey to prepare for tomorrow. A&Ox4. VSS. Denies pain and discomfort. No further needs expressed from the patient. Call light within reach
--- NOTE | 2020-08-29 18:58 | NUR ---
Received report from Shanae. Patient sitting in the recliner. Denies needs at this time.
--- NOTE | 2020-08-29 20:20 | NUR ---
Assesment done. Patient on O2 at 0.5l via NC. He reports pain on his right groin where they did the heart cath, pain score of 5/10. Will give Tramadol. He states he will walk 5-7 times in the hallway tomorrow in preparation for his discharge and if he will be needing oxygen at home. No IV site.
[2020-08-30 04:08] VITALS: BP 104/64; PULSE 68; TEMP 98.4
--- NOTE | 2020-08-30 06:10 | NUR ---
Patient had uneventful night. He asked for Tramadol for his right groin pain. He states after eating breakfast, he will try to walk in the hallway without his oxygen.
[2020-08-30 06:41] LABS: BASO # 0.1 (0.0-0.2); BASO % 1.5 % (0.0-2.0); EOS # 0.2 (0.0-0.7); EOS % 5.3 % (0-4.0); GRAN # 2.2 (1.4-6.5); GRAN % 49.1 % (42.2-75.2); HEMATOCRIT 37.8 % (42.0-52.0); HEMOGLOBIN 12.3 g/dl (13.5-18.0); LYMPH # 1.2 (1.2-3.4); LYMPH % 26.8 % (20.0-51.0); MEAN CELL VOLUME 104 fl (80.0-100.0); MEAN CORPUSCULAR HEMOGLOBIN 34 pg (27.0-31.0); MEAN CORPUSCULAR HGB CONC 33 g/dl (33.0-37.0); MONO # 0.8 (0.1-0.6); MONO % 16.6 % (1.7-9.3); PLATELET COUNT 204 K/mm3 (130-400); RED BLOOD COUNT 3.63 M/mm3 (4.20-5.60); REDCELL DISTRIBUTION WIDTH-CV 12.9 % (11.5-14.5)
[2020-08-30 06:49] LABS: CALCIUM 8.9 mg/dL (8.4-10.2); CREATININE, serum 0.74 (0.66-1.25); POTASSIUM 4.3 mmol/L (3.4-5.0)
--- NOTE | 2020-08-30 07:00 | NUR ---
Report with ASHISH Olson. Pt sitting up in chair eating breakfast, denies needs at this time. Call light in reach.
[2020-08-30] MEDS ORDERED: ELIQUIS 5MG PO (07:14)
[2020-08-30] MEDS ORDERED: THIAMINE 1100 MG/TAB PO (07:15)
[2020-08-30] MEDS ORDERED: FOLIC ACID 11 MG/TA1 PO (07:15)
[2020-08-30 08:29] VITALS: BP 112/58; PULSE 78; TEMP 98.6
[2020-08-30] MEDS ORDERED: OXYGEN NASAL.CANN (08:55)
[2020-08-30] MEDS ORDERED: NICODERM C21 MG/PATC TD (09:01)
[2020-08-30 11:56] VITALS: BP 133/82; PULSE 75; TEMP 97.5
--- NOTE | 2020-08-30 11:57 | NUR ---
Telemetry discontinued. Discharge instructions reviewed with pt regarding follow-up appointments, outpt tests, and medications. Pt verbalizes understanding, awaiting ride for discharge.
--- NOTE | 2020-08-30 13:00 | NUR ---
Pt discharged home, escorted out of facility via WC accompanied by CIS COORDINATOR and pt's friend.
== END 2020-08-30 13:15 | disposition home or self-care (01) | DRG 896 ==
LOC: COL.ER 05:53 → ICU 11:12 → MEDICAL 08-28 11:32
PROVIDERS: Emergency Medicine; Hospitalist; Internal Medicine Pulmonary Disease; Student in an Organized Health Care Education/Training Program; ADMIT Emergency Medicine
PROC: 4A023N7 Measurement of Cardiac Sampling and Pressure, Left Heart, Percutaneous Approach (ICD-10-PCS; principal; 2020-08-26)
PROC: B2111ZZ Fluoroscopy of Multiple Coronary Arteries using Low Osmolar Contrast (ICD-10-PCS; 2020-08-26)
PROC: B2151ZZ Fluoroscopy of Left Heart using Low Osmolar Contrast (ICD-10-PCS; 2020-08-26)
DX: F10.131 Alcohol abuse with withdrawal delirium (principal); I26.92 Saddle embolus of pulmonary artery without acute cor pulmonale; J96.01 Acute respiratory failure with hypoxia; N17.9 Acute kidney failure, unspecified; E87.2 Acidosis; M87.9 Osteonecrosis, unspecified; F10.129 Alcohol abuse with intoxication, unspecified; F12.10 Cannabis abuse, uncomplicated; F15.10 Other stimulant abuse, uncomplicated; F19.10 Other psychoactive substance abuse, uncomplicated; G31.2 Degeneration of nervous system due to alcohol; K76.0 Fatty (change of) liver, not elsewhere classified; K70.9 Alcoholic liver disease, unspecified; I07.1 Rheumatic tricuspid insufficiency; N20.0 Calculus of kidney; F17.210 Nicotine dependence, cigarettes, uncomplicated; Y90.8 Blood alcohol level of 240 mg/100 ml or more; Z72.89 Other problems related to lifestyle
CPT/HCPCS: 99223-AI; 99232-AI; 99233-AI; 99239; A4314; C1760; C1887; C1894; C9113; J1630; J1644; J1650; J2060; J2250; J2405; J3010; J3411; J3475; J7030; J7120; Q9967

== ENCOUNTER 2020-10-02 08:24 | Emergency (ER) | payer BC ==
[~2020-10-02] VITALS: Ht 175.3 cm; Wt 86.4 kg
[~2020-10-02 08:24] MED LIST changes: +ALEVE 220MG220 MG PO; +ELIQUIS 5MG PO; +FOLIC ACID 11 MG/TA1 PO; +IBU400 MG PO; +NICODERM C21 MG/PATC TD; +ONE-A-DAY ESSE1 EACH PO; +OXYGEN NASAL.CANN; +S IH; +THIAMINE 1100 MG/TAB PO; +TYLENOL 500MG500 MG PO
[2020-10-02 08:29] VITALS: TEMP 96.9
[2020-10-02 09:14] LABS: BASO # 0.1 (0.0-0.2); BASO % 1.1 % (0.0-2.0); EOS # 0.2 (0.0-0.7); EOS % 3.2 % (0-4.0); GRAN % 38.5 % (42.2-75.2); HEMATOCRIT 45.3 % (42.0-52.0); LYMPH # 2.3 (1.2-3.4); LYMPH % 44.5 % (20.0-51.0); MEAN CELL VOLUME 101 fl (80.0-100.0); MEAN CORPUSCULAR HEMOGLOBIN 33 pg (27.0-31.0); MEAN CORPUSCULAR HGB CONC 33 g/dl (33.0-37.0); MEAN PLATELET VOLUME 11.2 fl (7.4-10.4); MONO # 0.7 (0.1-0.6); MONO % 12.5 % (1.7-9.3); PLATELET COUNT 208 K/mm3 (130-400); RED BLOOD COUNT 4.49 M/mm3 (4.20-5.60); REDCELL DISTRIBUTION WIDTH-CV 12.7 % (11.5-14.5)
[2020-10-02 09:24] LABS: ALANINE AMINOTRANSFERASE 28 U/L (4-49); ALBUMIN 4.5 gm/dL (3.5-5.0); ALKALINE PHOSPHATASE 50 U/L (50-136); ANION GAP 10 mmol/L (7-16); AST,SGOT 51 U/L (15-37); BILIRUBIN,TOTAL 0.3 mg/dL (0.0-1.0); BLOOD UREA NITROGEN 12 mg/dL (9-20); CALCIUM 9.5 mg/dL (8.4-10.2); CARBON DIOXIDE 26 mmol/L (22-30); CHLORIDE 106 mmol/L (98-107); GLUCOSE 93 mg/dL (74-106); POTASSIUM 4.6 mmol/L (3.4-5.0); SODIUM 143 mmol/L (137-145); TOTAL PROTEIN 7.9 gm/dL (6.4-8.2)
[2020-10-02 09:36] LABS: TROPONIN-I < 0.012 ng/mL (0.000-0.035)
[2020-10-02] MEDS ORDERED: PREDNISONE20 MG PO (10:34)
[2020-10-02 11:00] VITALS: BP 115/88; PULSE 86
== END 2020-10-02 11:00 | disposition home or self-care (01) ==
LOC: COL.ER 08:24
PROVIDERS: Personal Emergency Response Attendant
DX: J44.1 Chronic obstructive pulmonary disease with (acute) exacerbation (principal); F17.210 Nicotine dependence, cigarettes, uncomplicated; Z86.711 Personal history of pulmonary embolism; Z79.01 Long term (current) use of anticoagulants
CPT/HCPCS: J2930; Q9967

== ENCOUNTER 2021-06-10 15:28 | Emergency (ER) | payer SELFPAY ==
[~2021-06-10] VITALS: Ht 172.7 cm; Wt 95.0 kg
[~2021-06-10 15:28] MED LIST changes: +PREDNISONE20 MG PO
[2021-06-10 16:10] VITALS: TEMP 98.7
[2021-06-10 17:33] LABS: BASO % 0.4 % (0.0-2.0); EOS # 0.1 K/mm3 (0.0-0.7); EOS % 1.1 % (0.0-4.0); GRAN # 5.8 K/mm3 (1.4-6.5); GRAN % 79.2 % (42.2-75.2); HEMATOCRIT 48.6 % (42.0-52.0); HEMOGLOBIN 16.6 g/dl (13.5-18.0); LYMPH # 0.8 K/mm3 (1.2-3.4); LYMPH % 10.7 % (20.0-51.0); MEAN CELL VOLUME 94 fl (80.0-100.0); MEAN CORPUSCULAR HEMOGLOBIN 32 pg (27-31); MEAN CORPUSCULAR HGB CONC 34 g/dl (33.0-37.0); MEAN PLATELET VOLUME 11.1 fl (7.4-10.4); MONO # 0.6 K/mm3 (0.1-0.6); MONO % 8.2 % (1.7-9.3); PLATELET COUNT 179 K/mm3 (130-400); RED BLOOD COUNT 5.18 M/mm3 (4.20-5.60); REDCELL DISTRIBUTION WIDTH-CV 13.3 % (11.5-14.5)
[2021-06-10 17:50] LABS: ALBUMIN 3.8 gm/dL (3.5-5.0); BILIRUBIN,TOTAL 1.2 mg/dL (0.2-1.2); C-REACTIVE PROTEIN 0.08 mg/dL (0.00-0.50); CREATININE, serum 1.12 mg/dL (0.72-1.25); POTASSIUM 3.8 mmol/L (3.5-4.5); TOTAL PROTEIN 7.2 gm/dL (6.2-8.1)
[2021-06-10 17:57] LABS: TROPONIN-I 0.014 ng/mL (0.00-0.033)
[2021-06-10 18:39] LABS: COLLECTION METHOD CLEAN CATCH
[2021-06-10 18:57] LABS: MUCOUS Present (NOT PRESENT); PH 5 (5-8); SQUAMOUS EPITHELIAL 0-2 /hpf (0-10); URINE APPEARANCE Hazy (CLEAR/HAZY); URINE BACTERIA Rare /hpf (NONE SEEN); URINE BILIRUBIN Negative (NEGATIVE); URINE BLOOD 2+ (NEGATIVE); URINE COLOR Yellow (YELLOW); URINE GLUCOSE Negative (NEGATIVE); URINE KETONE 1+ (NEGATIVE); URINE LEUKOCYTE ESTERASE 2+ (NEGATIVE); URINE NITRATE Negative (NEGATIVE); URINE PROTEIN(semi-quant) 2+ (NEGATIVE); URINE UROBILINOGEN Negative (NEGATIVE)
[2021-06-10] MEDS ORDERED: OMNICEF 300MG300 MG PO (20:28)
[2021-06-10 21:01] VITALS: BP 144/95; PULSE 67
== END 2021-06-10 21:01 | disposition home or self-care (01) ==
LOC: COL.ER 15:28
PROVIDERS: Nurse Practitioner Primary Care
DX: N39.0 Urinary tract infection, site not specified (principal); J06.9 Acute upper respiratory infection, unspecified; F17.200 Nicotine dependence, unspecified, uncomplicated; Z20.822 Contact with and (suspected) exposure to COVID-19; Z87.11 Personal history of peptic ulcer disease
CPT/HCPCS: J0696; J1885; J2405; J2550; J7030; Q9967

== ENCOUNTER 2021-08-23 12:19 | Emergency (ER) | payer SELFPAY ==
[~2021-08-23] VITALS: Ht 172.7 cm; Wt 90.9 kg
[~2021-08-23 12:19] MED LIST changes: +OMNICEF 300MG300 MG PO
[2021-08-23 12:20] VITALS: TEMP 98.7
[2021-08-23 12:31] LABS: BASO # 0.1 K/mm3 (0.0-0.2); BASO % 0.6 % (0.0-2.0); EOS # 0.3 K/mm3 (0.0-0.7); EOS % 2.8 % (0.0-4.0); GRAN % 67.8 % (42.2-75.2); HEMATOCRIT 38.9 % (42.0-52.0); HEMOGLOBIN 13.8 g/dl (13.5-18.0); LYMPH # 1.4 K/mm3 (1.2-3.4); LYMPH % 15.5 % (20.0-51.0); MEAN CELL VOLUME 92 fl (80.0-100.0); MEAN CORPUSCULAR HEMOGLOBIN 33 pg (27-31); MEAN CORPUSCULAR HGB CONC 36 g/dl (33.0-37.0); MEAN PLATELET VOLUME 10.3 fl (7.4-10.4); MONO # 1.1 K/mm3 (0.1-0.6); MONO % 12.7 % (1.7-9.3); PLATELET COUNT 394 K/mm3 (130-400); RED BLOOD COUNT 4.21 M/mm3 (4.20-5.60); REDCELL DISTRIBUTION WIDTH-CV 12.8 % (11.5-14.5)
[2021-08-23 13:09] LABS: ALANINE AMINOTRANSFERASE 85 U/L (0-55); ALBUMIN 2.9 gm/dL (3.5-5.0); ALKALINE PHOSPHATASE 136 U/L (40-150); ANION GAP 13 mmol/L (7-16); AST,SGOT 108 U/L (5-34); BILIRUBIN,TOTAL 0.6 mg/dL (0.2-1.2); BLOOD UREA NITROGEN 15 mg/dL (8-26); CALCIUM 11.5 mg/dL (8.4-10.2); CARBON DIOXIDE 28 mmol/L (22-29); CHLORIDE 95 mmol/L (98-107); GLUCOSE 108 mg/dL (70-99); LIPASE 217 U/L (8-78); POTASSIUM 3.4 mmol/L (3.5-4.5); SODIUM 136 mmol/L (136-145)
[2021-08-23 13:17] LABS: TROPONIN-I < 0.010 ng/mL (0.00-0.033)
[2021-08-23 15:04] LABS: COLLECTION METHOD CLEAN CATCH
[2021-08-23] MEDS ORDERED: ZOFRAN ODT4 MG PO (15:13)
[2021-08-23 15:16] LABS: MUCOUS Present (NOT PRESENT); PH 6 (5-8); SQUAMOUS EPITHELIAL None Seen /hpf (0-10); URINE APPEARANCE Hazy (CLEAR/HAZY); URINE BACTERIA None Seen /hpf (NONE SEEN); URINE BILIRUBIN Negative (NEGATIVE); URINE BLOOD Negative (NEGATIVE); URINE COLOR Yellow (YELLOW); URINE GLUCOSE Negative (NEGATIVE); URINE KETONE Trace (NEGATIVE); URINE LEUKOCYTE ESTERASE Negative (NEGATIVE); URINE NITRATE Negative (NEGATIVE); URINE PROTEIN(semi-quant) Negative (NEGATIVE); URINE RBC 0-2 /hpf (0-2); URINE UROBILINOGEN Negative (NEGATIVE)
[2021-08-23 15:45] VITALS: BP 148/54; PULSE 81
== END 2021-08-23 15:45 | disposition home or self-care (01) ==
LOC: COL.ER 12:19
PROVIDERS: Emergency Medicine; Nurse Practitioner Primary Care
DX: K85.20 Alcohol induced acute pancreatitis without necrosis or infection (principal); Z20.822 Contact with and (suspected) exposure to COVID-19
CPT/HCPCS: J2270; J2405; J7030; Q9967

== ENCOUNTER 2021-12-13 21:04 | Emergency (ER) | payer SELFPAY ==
[~2021-12-13] VITALS: Ht 175.3 cm; Wt 86.4 kg
[~2021-12-13 21:04] MED LIST changes: +ZOFRAN ODT4 MG PO
[2021-12-13 21:18] VITALS: BP 129/78; TEMP 98.2
[2021-12-13 22:19] VITALS: PULSE 86
== END 2021-12-13 22:20 | disposition home or self-care (01) ==
LOC: COL.ER 21:04
DX: S90.222A Contusion of left lesser toe(s) with damage to nail, initial encounter (principal); S91.201A Unspecified open wound of right great toe with damage to nail, initial encounter; F17.200 Nicotine dependence, unspecified, uncomplicated; W22.8XXA Striking against or struck by other objects, initial encounter

== ENCOUNTER 2023-08-14 07:45 | Emergency (ER) | payer SELFPAY ==
[~2023-08-14] VITALS: Ht 172.7 cm; Wt 100.0 kg
[2023-08-14 07:46] VITALS: TEMP 97.8
[2023-08-14] MEDS ORDERED: Albuterol/Ipratropium 3 MG-0.5 MG/3 ML Neb Soln IH SCH (08:00)
[2023-08-14] MEDS ORDERED: LR 1,000 ML IV ONE (08:00)
[2023-08-14] MEDS ORDERED: predniSONE 20 MG TAB PO ONE (08:00)
[2023-08-14 08:07] LABS: BASO # 0.1 K/mm3 (0.0-0.2); EOS # 0.6 K/mm3 (0.0-0.7); EOS % 9.8 % (0.0-4.0); GRAN % 53.1 % (42.2-75.2); HEMATOCRIT 46.9 % (42.0-52.0); HEMOGLOBIN 15.9 g/dl (13.5-18.0); LYMPH # 1.5 K/mm3 (1.2-3.4); LYMPH % 25.5 % (20.0-51.0); MEAN CELL VOLUME 92 fl (80.0-100.0); MEAN CORPUSCULAR HEMOGLOBIN 31 pg (27-31); MEAN CORPUSCULAR HGB CONC 34 g/dl (33.0-37.0); MEAN PLATELET VOLUME 11.2 fl (7.4-10.4); MONO # 0.6 K/mm3 (0.1-0.6); MONO % 10.3 % (1.7-9.3); PLATELET COUNT 160 K/mm3 (130-400); REDCELL DISTRIBUTION WIDTH-CV 13.1 % (11.5-14.5)
[2023-08-14 08:27] LABS: ALANINE AMINOTRANSFERASE 22 U/L (0-55); ALBUMIN 3.9 g/dL (3.5-5.0); ALKALINE PHOSPHATASE 75 U/L (40-150); ANION GAP 13 mmol/L (7-16); AST,SGOT 32 U/L (5-34); BLOOD UREA NITROGEN 11 mg/dL (8-26); CALCIUM 9.2 mg/dL (8.4-10.2); CHLORIDE 104 mEq/L (98-107); CREATININE, serum 1.04 mg/dL (0.72-1.25); GLUCOSE 101 mg/dL (70-99); SODIUM 139 mEq/L (136-145); TOTAL PROTEIN 7.7 g/dl (6.2-8.1)
[2023-08-14 08:51] LABS: TROPONIN-I < 0.010 ng/mL (0.00-0.033)
[2023-08-14] MEDS ORDERED: Ketorolac 30 MG/ML VIAL IV ONE (09:15)
[2023-08-14] MEDS ORDERED: Acetaminophen 500 MG TAB PO ONE (09:15)
[2023-08-14] MEDS ORDERED: PREDNISONE50 MG PO (10:12)
[2023-08-14 10:13] VITALS: BP 154/89; PULSE 81
[2023-08-14] MEDS ORDERED: Albuterol 90 MCG/PUFF 8 GM MDI IH ONE (10:15)
== END 2023-08-14 10:24 | disposition home or self-care (01) ==
LOC: COL.ER 07:45
PROVIDERS: Emergency Medicine
DX: J20.9 Acute bronchitis, unspecified (principal); R07.89 Other chest pain
CPT/HCPCS: J1885; J7120; J7512

== ENCOUNTER 2023-12-07 13:11 | Emergency (ER) | payer SELFPAY ==
[~2023-12-07] VITALS: Ht 172.7 cm; Wt 100.0 kg
[~2023-12-07 13:11] MED LIST changes: +PREDNISONE50 MG PO
[2023-12-07 13:20] VITALS: TEMP 98.5
[2023-12-07 14:48] VITALS: BP 132/88; PULSE 98
== END 2023-12-07 14:57 | disposition home or self-care (01) ==
LOC: COL.ER 13:11
DX: S81.811A Laceration without foreign body, right lower leg, initial encounter (principal); F17.200 Nicotine dependence, unspecified, uncomplicated; W11.XXXA Fall on and from ladder, initial encounter

== ENCOUNTER 2024-02-12 18:38 | Emergency (ER) | payer SELFPAY ==
[~2024-02-12] VITALS: Ht 172.7 cm; Wt 90.9 kg
[2024-02-12 18:49] VITALS: TEMP 97
[2024-02-12] MEDS ORDERED: Ondansetron 4 MG/2 ML VIAL IV ONE (20:45)
[2024-02-12] MEDS ORDERED: NS 1,000 ML IV ONE (20:45)
[2024-02-12] MEDS ORDERED: methylPREDNISolone Sod Succ 125 MG/2 ML VIAL IV ONE (21:00)
[2024-02-12] MEDS ORDERED: Albuterol/Ipratropium 3 MG-0.5 MG/3 ML Neb Soln IH ONE (21:00)
[2024-02-12 21:32] LABS: BASO % 0.7 % (0.0-2.0); EOS # 0.1 K/mm3 (0.0-0.7); EOS % 2.2 % (0.0-4.0); GRAN # 2.6 K/mm3 (1.4-6.5); GRAN % 64.5 % (42.2-75.2); LYMPH # 0.7 K/mm3 (1.2-3.4); LYMPH % 18.2 % (20.0-51.0); MEAN CELL VOLUME 98 fl (80.0-100.0); MEAN CORPUSCULAR HEMOGLOBIN 34 pg (27-31); MEAN CORPUSCULAR HGB CONC 34 g/dl (33.0-37.0); MEAN PLATELET VOLUME 11.7 fl (7.4-10.4); MONO # 0.6 K/mm3 (0.1-0.6); MONO % 14.2 % (1.7-9.3); PLATELET COUNT 115 K/mm3 (130-400); RED BLOOD COUNT 4.47 M/mm3 (4.20-5.60); REDCELL DISTRIBUTION WIDTH-CV 13.3 % (11.5-14.5)
[2024-02-12] MEDS ORDERED: Morphine 4 MG/ML VIAL IV ONE (21:45)
[2024-02-12 21:48] LABS: ALBUMIN 3.5 g/dL (3.5-5.0); CALCIUM 8.9 mg/dL (8.4-10.2); CREATININE, serum 0.86 mg/dL (0.72-1.25); POTASSIUM 3.8 mEq/L (3.5-4.5); TOTAL PROTEIN 6.7 g/dl (6.2-8.1)
[2024-02-12] MEDS ORDERED: NS 100 ML IV ONE (22:19)
[2024-02-12] MEDS ORDERED: Iohexol 300 - 100 ML VIAL IV ONE (22:19)
[2024-02-12 23:11] LABS: COLLECTION METHOD CLEAN CATCH
[2024-02-12 23:14] LABS: PH 7.5 (5.0-8.5); URINE APPEARANCE CLEAR (CLEAR/HAZY); URINE BLOOD NEGATIVE (NEGATIVE); URINE COLOR YELLOW (YELLOW); URINE GLUCOSE NEGATIVE (NEGATIVE); URINE KETONE 1+ (NEGATIVE); URINE NITRATE NEGATIVE (NEGATIVE); URINE PROTEIN(semi-quant) NEGATIVE (NEGATIVE)
[2024-02-13] MEDS ORDERED: Home HYDROcodone/Acetaminophen 5/325 MG #4 TABS/PACK PO ONE (00:15)
[2024-02-13 00:20] VITALS: BP 142/78; PULSE 77
== END 2024-02-13 00:21 | disposition home or self-care (01) ==
LOC: COL.ER 18:38
PROVIDERS: Emergency Medicine
DX: R10.32 Left lower quadrant pain (principal); Z20.822 Contact with and (suspected) exposure to COVID-19
CPT/HCPCS: J2270; J2405; J2919; J7030; Q9967